=== PATIENT | female | born 1995 | race Two or more races ===

== ENCOUNTER 2022-04-09 15:06 | Outpatient (REF) | payer OTHER, SELFPAY ==
[2022-04-10 17:06] LABS: CT PCR NOT DETECTED (Not Detect.); NG PCR NOT DETECTED (Not Detect.)
[2022-04-11 09:46] LABS: BV Int Neg Control Negative (Negative); BV Int Pos Control Positive (Positive)
== END 2022-04-09 15:07 | disposition home or self-care (01) ==
LOC: HO.LAB 15:06
PROVIDERS: PCP Physician Assistant; Visit Provider Advanced Practice Midwife
DX: Z01.419 Encounter for gynecological examination (general) (routine) without abnormal findings (principal); N92.6 Irregular menstruation, unspecified; E66.9 Obesity, unspecified
CPT/HCPCS: 87480; 87491; 87510; 87591; 87660; 88142

== ENCOUNTER → 2022-08-11 14:00 | Outpatient (BNVA) | payer OTHER, SELFPAY | PROVIDERS: PCP Physician Assistant; Visit Provider Advanced Practice Midwife | DX: N92.6 Irregular menstruation, unspecified (principal); L68.0 Hirsutism | CPT/HCPCS: 99212 ==

== ENCOUNTER 2022-09-22 15:20 | Outpatient (REF) | payer OTHER, SELFPAY ==
--- NOTE | ~2022-09-22 | US_ITS ---
EXAMINATION: US PELVIS CLINICAL INFORMATION: Hirsutism COMPARISON: None TECHNIQUE: Ultrasound of the pelvis is performed using both transabdominal and transvaginal transducers along with Doppler. Transvaginal imaging is performed due to inadequate visualization transabdominally. FINDINGS: The uterus is anteverted and measures 7.1 x 3.4 x 4.1 cm in dimension. No focal uterine lesion. Endometrial thickness is normal measuring 0.6 cm. The ovaries are normal in size. The right ovary measures 2.8 x 2.3 x 2.3 cm. The left ovary measures 3.3 x 2.1 x 2.3 cm. There are multiple small peripheral cysts or follicles seen in both ovaries with polycystic appearance. There is no fluid in the pelvis. US/US pelvic and transvaginal IMPRESSION: Polycystic appearance of the ovaries. The ovaries are normal in size. The uterus is normal appearing.
[2022-09-22 18:12] LABS: Thyroid Stimulating Hormone 1.87 uIU/mL (0.32-4.0)
[2022-09-23 12:46] LABS: Prolactin 9.8 ng/mL
[2022-09-23 16:56] LABS: DHEA Sulfate 129 mcg/dL (14-349)
[2022-09-26 15:37] LABS: Testosterone, Free 6.5 pg/mL (0.1-6.4); Testosterone, Total 38 ng/dL (2-45)
== END 2022-09-22 15:21 | disposition home or self-care (01) ==
LOC: HO.US 15:20
PROVIDERS: PCP Physician Assistant; Visit Provider Advanced Practice Midwife
DX: L68.0 Hirsutism (principal); N92.6 Irregular menstruation, unspecified
CPT/HCPCS: 36415; 76830; 76856; 82627; 83498; 84146; 84402; 84403; 84443

== ENCOUNTER → 2022-10-06 14:00 | Outpatient (BNVA) | payer OTHER, SELFPAY | PROVIDERS: PCP Physician Assistant; Visit Provider Advanced Practice Midwife | DX: Z71.2 Person consulting for explanation of examination or test findings (principal); Z30.011 Encounter for initial prescription of contraceptive pills; R79.89 Other specified abnormal findings of blood chemistry; E28.2 Polycystic ovarian syndrome; G43.109 Migraine with aura, not intractable, without status migrainosus | CPT/HCPCS: 99212 ==

== ENCOUNTER → 2023-03-22 14:09 | Outpatient (BNVA) | payer OTHER, SELFPAY | PROVIDERS: PCP Physician Assistant; Visit Provider Advanced Practice Midwife | DX: Z51.81 Encounter for therapeutic drug level monitoring (principal); Z30.09 Encounter for other general counseling and advice on contraception; G43.909 Migraine, unspecified, not intractable, without status migrainosus; E28.2 Polycystic ovarian syndrome | CPT/HCPCS: 81025; 99212 ==

== ENCOUNTER 2023-12-16 15:14 | Outpatient (AMB) | payer OTHER, SELFPAY ==
[2023-12-16 15:17] VITALS: BP 104/68; BMI 35.2
--- NOTE | 2023-12-16 15:17 | A.OFFVIS_ITS ---
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 Doing well with no concerns. Stopped Jaleesa last year due to headaches (migraines w/aura). Seen at [facility] for fertiliy assistance-admits she took pills and they did not work, she did not follow up for further assistance. Cycles are normally every other month, Hx. of PCOS, skippped her menses since August. Currently is sexually active. She denies vaginal itching and irritation. STI screening offered; she accepts. She declines blood work. She tries to eat healthy, reports she is no longer pre diabetic and that her blood sugars have been good. Denies family history of breast, ovarian or colon cancer. Last pap smear 2021, negative. [facility] Medical History Migraine with aura PCOS (polycystic ovarian syndrome) Hirsutism Obesity (BMI 35.0-39.9 without comorbidity) Irregular menses Family History Father HTN (hypertension) Diabetes Mother HTN (hypertension) Social History Household Members: Significant Other Housing: House Alcohol intake: current Alcohol intake frequency: holidays/special occasions only Patient Tobacco Use Status: Never used Tobacco service: No Current occupational status: employed Current occupation: extrusion line operator Sexual orientation: Straight/Heterosexual Gender identity: Female Female Reproductive History Menstrual Age of Menarche: 11 Date of last menstrual period: 09/22/23 Total pregnancies: 0 Date of last pap smear: 04/09/22 (neg) Review of Systems Const All systems reviewed & are unremarkable except as noted in HPI and below Reports as per HPI Eyes Reports no additional complaints ENT Reports no additional complaints Card Reports no additional complaints Resp Reports no additional complaints GI Reports as per HPI and Reports no additional complaints Reports as per HPI Musc Reports no additional complaints Skin/Breast Reports as per HPI Neuro Reports no additional complaints Psych Reports no additional complaints Endo Reports no additional complaints Alex/Lymph Reports no additional complaints Aller/Immun Reports no additional complaints Physical Exam Vital Signs: Last Vital Signs BP 104/68 12/16/23 15:17 BMI result Body Mass Index 35.2 Const General: cooperative, healthy appearing, no acute distress, well developed and alert Orientation/consciousness: patient oriented x3 HEENT Head: Yes normal to inspection Eyes General: appearance normal, both eyes and all related structures Neck Neck: Yes normal visual inspection Thyroid: Thyroid normal Chest Chest palpation & inspection: normal inspection of the chest and other (no puckering, dimpling, peau de orange, retraction, discharge, masses) Breast/axilla inspection: normal inspection of the breasts Breast/axilla palpation: normal palpation of the breasts Resp Effort & Inspection: normal respiratory effort GI Inspection: Yes normal to inspection Palpation (GI): Soft to palpation Rectal Exam - Female: deferred General: Yes bladder normal to palpation External Female Exam: normal external appearance and normal appearance of the urethra Speculum Exam - Vagina: normal appearance of the vagina, normal palpation and normal vaginal discharge Speculum Exam - Cervix: normal appearance of the cervix and normal palpation Bimanual exam- vagina & uterus: normal bimanual exam, normal palpation, uterine size normal, bladder normal to palpation, normal palpation and non-tender Bimanual Exam- Adnexa, other: no masses Skin General skin exam: no rashes or lesions noted Rashes: no rashes Neuro General: patient oriented x3 Cognition (Neuro): normal cognition Extrem General: Yes normal to inspection Psych Attitude: cooperative Thought process: Normal thought process present Results AMB Test Urine AMB Test Urine Negative Last Edit by TADEO Menezes on 12/16/23 15:28 Results Reviewed Results Reviewed: Laboratory Last Values [facility] Clinic Negative 12/16/23 15:27 Assessment & Plan Assessment & Plan (1) Encounter for well woman exam with routine gynecological exam: Code(s): Z01.419 - Encounter for gynecological examination (general) (routine) without abnormal findings Plan Discussed: Current recommendations for pap smears per ASCCP guidelines. Breast awareness and periodic breast exams. Maintain a healthy lifestyle including a well balanced diet and routine exercise. Rx for vitamins sent in for the benefit of the folic acid. Rx for Provera sent in she can take it every month or every other month if needed if she runs low she can call in for a refill to complete for the rest of the year. Discussed DEBORAH services on hold at [facility] for 6 months. All of her questions and concerns were addressed to the best of my ability. RTO in one year for annual court liaison examination. This note is constructed using voice recognition software. While every effort has been made to ensure accuracy, director human services errors may have been included. Orders: Orders AMB HCG Urine Test Today Z32.02 - Encounter for test, result negative Medications: New medroxyprogesterone (Provera) 10 mg PO DAILY 5 days 5 tabs 6RF PNV,calcium 23-lvuu-lcvoi acid 27 mg iron- 1 mg ( Vitamins Plus Low Iron) 1 tab PO DAILY 90 tabs 4RF Coding Level of Care Code Est Pt Prev Care [id number]([id number]) Diagnoses Encounter for well woman exam with routine gynecological exam Z01.419
== END 2023-12-16 15:57 | disposition home or self-care (01) ==
LOC: HO.HWS 15:14
PROVIDERS: PCP Physician Assistant; Visit Provider Advanced Practice Midwife
DX: Z01.419 Encounter for gynecological examination (general) (routine) without abnormal findings (principal); Z32.02 Encounter for pregnancy test, result negative
CPT/HCPCS: 99395

== ENCOUNTER 2023-12-16 15:14 | Outpatient (REF) | payer OTHER, SELFPAY ==
[2023-12-17 03:42] LABS: CT PCR NOT DETECTED (Not Detect.); NG PCR NOT DETECTED (Not Detect.)
== END 2023-12-16 15:15 | disposition home or self-care (01) ==
LOC: HO.LNP 15:14
PROVIDERS: PCP Physician Assistant; Visit Provider Advanced Practice Midwife
DX: Z01.419 Encounter for gynecological examination (general) (routine) without abnormal findings (principal); N92.6 Irregular menstruation, unspecified; Z11.3 Encounter for screening for infections with a predominantly sexual mode of transmission
CPT/HCPCS: 0353U; 81025; 99395